=== PATIENT | female | born 1990 | race African-American/Black ===

== ENCOUNTER 2024-12-15 12:12 | Emergency (ER) | payer MEDICAID ==
[~2024-12-15] VITALS: Ht 165.1 cm; Wt 123.0 kg
[2024-12-15 12:14] VITALS: O2SAT 98
[2024-12-15] MEDS ORDERED: LIDO700A30 TP (15:08)
[2024-12-15] MEDS ORDERED: KETO10TA2 MT (15:08)
[2024-12-15] MEDS ORDERED: CYCL10TA21 MT (15:08)
[2024-12-15] MEDS: CYCLOBENZAPRINE 10MG TABLET PO ONE (15:09)
[2024-12-15] MEDS: LIDOCAINE 5% PATCH TOP STA (15:09)
[2024-12-15] MEDS: KETOROLAC 30MG/ML VIAL IM ONE (15:10)
[2024-12-15 16:14] VITALS: BP 135/97; PULSE 62; RESP 14; TEMP 36.7; O2SAT 100
== END 2024-12-15 16:15 | disposition home or self-care (01) ==
LOC: ER 12:12
DX: M25.531 Pain in right wrist (principal); M54.50 Low back pain, unspecified
CPT/HCPCS: 99283; 73110; 29125; 96372; J1885